=== PATIENT | female | born 1990 | race Caucasian/White ===

== ENCOUNTER 2018-05-03 22:28 | Emergency (ER) | payer SELFPAY ==
[~2018-05-03] VITALS: Ht 165.1 cm; Wt 76.2 kg
[2018-05-03 23:00] VITALS: BP 164/101
[2018-05-03] MEDS: AZITHROMYCIN 250 MG TABLET. PO ONE (23:43)
[2018-05-03] MEDS: cefTRIAXone IM 250 MG VIAL IM ONE (23:44)
--- NOTE | 2018-05-03 23:58 | PHYS DOC ---
Past Medical History Past Medical History: No Pertinent History Past Surgical History: Alcohol Use: None Drug Use: None Adult General Chief Complaint Chief Complaint: SEXUALLY TRANSMITTED DISEASE HPI HPI Patient is a 27 year old female who presents to the emergency room today with a request to be treated for sexually transmitted diseases. Patient states that her significant other was seen at [facility] today and given treatment for gonorrhea and chlamydia. Patient states that her boyfriend was treated presumptively and no testing was done. Patient states that she would not like to be tested she will just like to receive treatment at this time. She denies any dysuria, irregular vaginal discharge, abdominal pain, back pain, fever, or vaginal odor. Review of Systems Review of Systems Constitutional: Denies fever or chills []] GI: Denies abdominal pain, nausea, vomiting, or diarrhea [] : Denies dysuria or hematuria [] Musculoskeletal: Denies back pain or joint pain [] Integument: Denies rash or skin lesions [] Neurologic: Denies headache, focal weakness or sensory changes [] All other systems were reviewed and found to be within normal limits, except as documented in this note. Current Medications Current Medications Current Medications Medications (Trade) Dose Ordered Sig/Mylene Start Time Stop Time Status Last Admin Dose Admin Azithromycin (Zithromax) 1,000 mg 1X ONCE 05/03/18 23:30 05/03/18 23:31 DC 05/03/18 23:43 1,000 MG Ceftriaxone Sodium (Rocephin Im) 250 mg 1X ONCE 05/03/18 23:30 05/03/18 23:31 DC 05/03/18 23:44 250 MG Allergies Allergies Allergies Coded Allergies Type Severity Reaction Last Updated Verified No Known Drug Allergies 05/03/18 No Physical Exam Physical Exam Constitutional: Well developed, well nourished, no acute distress, non-toxic appearance. [] HENT: Normocephalic, atraumatic, bilateral external ears normal, nose normal. [ ] Eyes: PERRLA, conjunctiva normal, no discharge. [] Neck: Normal range of motion, supple, no stridor. [] Skin: Warm, dry, no erythema, no rash. [] Extremities: No cyanosis, no clubbing, ROM intact, no edema. [] Neurologic: Alert and oriented X 3, normal motor function, normal sensory function, no focal deficits noted. [] Psychologic: Affect normal, judgement normal, mood normal. [] Current Patient Data Vital Signs Vital Signs Date Time Temp Pulse Resp B/P (MAP) Pulse Ox O2 Delivery O2 Flow Rate FiO2 05/03/18 23:00 98.4 97 14 164/101 (122) 98 Room Air 98.4 EKG EKG [] Radiology/Procedures Radiology/Procedures [] Course & Med Decision Making Course & Med Decision Making Pertinent Labs and Imaging studies reviewed. (See chart for details) dx: Contact with suspected STI Patient refused a pelvic exam and testing for STI. Patient was treated prophylactically for gonorrhea and chlamydia with 250 mg of IM Rocephin, and 1 g of PO Zithromax. Refrain from intercourse for approximately 2 weeks following the treatment of any current partners. Patient verbalized an understanding of home care, medications, follow-up, and return to ED instructions and was in agreement with the plan of care. [] Dragon Disclaimer Dragon Disclaimer This electronic medical record was generated, in whole or in part, using a voice recognition dictation system. Departure Departure Impression: Primary Impression: Contact with and (suspected) exposure to infections with a predominantly sexual mode of transmission Disposition: HOME, SELF-CARE Condition: STABLE Referrals: WESTLEY SOFIA MD (PCP) Patient Instructions: Sexually Transmitted Disease, [id number] Additional Instructions: You were treated for gonorrhea and chlamydia. The treatment you received does not treat Trichomonas. Refrain from intercourse for approximately 2 weeks following the treatment of any current partners. Attending Signature Attending Signature I have reviewed the PA/COMPUTER EDUCATION PROFESSOR's note and plan of care. I was available for consultation as needed during the patient's visit in the emergency department. I agree with the clinical impression, plan, and disposition. SHEELA MCKINNON APRN May 03, 2018 23:58 MITCH REDMOND DO May 07, 2018 15:55
== END 2018-05-04 00:04 | disposition home or self-care (01) ==
LOC: ER 22:28
DX: Z20.2 Contact with and (suspected) exposure to infections with a predominantly sexual mode of transmission (principal); Z98.890 Other specified postprocedural states
CPT/HCPCS: 96372; 99283; J0696; Q0144